=== PATIENT | male | born 1975 | race Caucasian/White ===

== ENCOUNTER 2025-02-11 12:31 | Day surgery (SDC) | payer BC ==
[2025-02-11] MEDS: Lactated Ringers 1,000 ML IV SCH (12:40)
[2025-02-11] MEDS ORDERED: fentaNYL 50 MCG/ML SDV ONE (14:10)
[2025-02-11] MEDS ORDERED: Ketamine 200 MG/20 ML MDV ONE (14:10)
[2025-02-11] MEDS ORDERED: Midazolam 1 MG/ML 2 ML SDV ONE ×2 (14:10)
[2025-02-11] MEDS ORDERED: Propofol 200 MG/20 ML SDV ONE ×2 (14:10)
== END 2025-02-11 15:35 | disposition home or self-care (01) ==
LOC: CC.SDS 12:31
PROVIDERS: ATTEND Surgery
DX: Z12.11 Encounter for screening for malignant neoplasm of colon (principal); D12.5 Benign neoplasm of sigmoid colon; K57.30 Diverticulosis of large intestine without perforation or abscess without bleeding; F17.210 Nicotine dependence, cigarettes, uncomplicated; Z79.899 Other long term (current) drug therapy
CPT/HCPCS: 00811; J2250; J2704; J3010; J3490; J7120